=== PATIENT | male | born 1975 | race American Indian/Alaskan Native ===

== ENCOUNTER 2017-08-03 12:19 | Emergency (ER) | payer OTHER ==
[2017-08-03 13:02] VITALS: BP 122/74
[2017-08-03] MEDS ORDERED: MOTRIN PO ONE (19:21)
[2017-08-03] MEDS ORDERED: ZOFRAN ODT PO ONE (19:21)
--- NOTE | 2017-08-03 19:38 | Emergency Department Report ---
- General Chief Complaint: Upper Respiratory Infection Stated Complaint: FLU Time Seen by Provider: 08/03/17 19:19 Source: patient Mode of arrival: Ambulatory Limitations: No Limitations - History of Present Illness Initial Comments: pt presents for flu like symptoms x 1 week cough bodyaches chills fever nausea and vomiting, last n/v yesterday last po intake 2 hrs ago pt now tolerating po intake without n/v/d afebrile in triage today. current symptoms include cough productive yellow, sore throat and ear pain, pt denies dizziness no sob no wheezing no abdominal or back pain MD Complaint: fever, cough, sore throat, rhinorrhea, nasal congestion, sinus pain Onset/Timin -: week(s) Severity: moderate Severity scale (0 -10): 4 Quality: sharp, aching Consistency: intermittent Improves With: nothing Worsens With: activity Associated Symptoms: fever, chills, rhinorrhea, nasal congestion, sore throat, cough, nausea, vomiting, ear pain. denies: diarrhea, dysuria, rash, confusion, right sweats, epistaxis, hoarseness Treatments Prior to Arrival: none - Related Data Previous Rx's Medication Instructions Recorded Last Taken Type Azithromycin [Zithromax Z-KAROLINA] 250 mg PO DAILY #6 tablet 08/03/17 Unknown Rx Guaifenesin/Pseudoephedrne HCl 1 tab PO BID PRN #24 tab 08/03/17 Unknown Rx [Mucinex D ER 1,200-120 mg Tab] Ibuprofen 800 mg PO TID PRN #30 tablet 08/03/17 Unknown Rx Allergies Allergy/AdvReac Type Severity Reaction Status Date / Time No Known Allergies Allergy Unverified 08/03/17 12:59 ED Review of Systems ROS: Stated complaint: FLU Other details as noted in HPI Constitutional: denies: chills, fever Eyes: denies: eye pain, eye discharge, vision change ENT: ear pain, throat pain, congestion. denies: dental pain, hearing loss, epistaxis Respiratory: cough. denies: shortness of breath, wheezing Cardiovascular: denies: chest pain, palpitations, dyspnea on exertion, syncope, paroxysmal nocturnal dyspnea Endocrine: no symptoms reported Gastrointestinal: nausea. denies: abdominal pain, diarrhea, constipation, hematemesis, melena, hematochezia Genitourinary: denies: urgency, dysuria Musculoskeletal: as per HPI Skin: denies: rash, lesions Neurological: denies: headache, weakness, paresthesias Psychiatric: denies: anxiety, depression Hematological/Lymphatic: denies: easy bleeding, easy bruising ED Past Medical Hx - Past Medical History Previous Medical History?: No - Surgical History Past Surgical History?: No - Social History Smoking Status: Current Every Day Smoker Substance Use Type: None - Medications Home Medications: Home Medications Medication Instructions Recorded Confirmed Last Taken Type Azithromycin [Zithromax Z-KAROLINA] 250 mg PO DAILY #6 tablet 08/03/17 Unknown Rx Guaifenesin/Pseudoephedrne HCl 1 tab PO BID PRN #24 tab 08/03/17 Unknown Rx [Mucinex D ER 1,200-120 mg Tab] Ibuprofen 800 mg PO TID PRN #30 tablet 08/03/17 Unknown Rx ED Physical Exam - General Limitations: No Limitations General appearance: alert, in no apparent distress - Head Head exam: Present: atraumatic, normocephalic - Eye Eye exam: Present: normal appearance, PERRL, EOMI Pupils: Present: normal accommodation - ENT ENT exam: Present: mucous membranes moist - Expanded ENT Exam Expanded TM/Canal exam: Erythema: Right TM, Left TM, Canal Tenderness: Right TM, Left TM Mouth exam: Absent: trismus Teeth exam: Present: normal inspection Throat exam: Positive: tonsillar erythema. Negative: tonsillomegaly, tonsillar exudate, R peritonsillar mass, L peritonsillar mass - Neck Neck exam: Present: normal inspection, full ROM. Absent: tenderness, meningismus, lymphadenopathy, thyromegaly - Respiratory Respiratory exam: Present: normal lung sounds bilaterally. Absent: respiratory distress, wheezes, stridor, chest wall tenderness - Cardiovascular Cardiovascular Exam: Present: regular rate, normal rhythm. Absent: systolic murmur, diastolic murmur, rubs, gallop - GI/Abdominal GI/Abdominal exam: Present: soft, normal bowel sounds. Absent: distended, tenderness, guarding, rebound, rigid, organomegaly, mass, bruit, pulsatile mass , hernia - Rectal Rectal exam: Present: deferred - Extremities Exam Extremities exam: Present: normal inspection, full ROM. Absent: tenderness - Back Exam Back exam: Present: normal inspection, full ROM. Absent: tenderness - Neurological Exam Neurological exam: Present: alert, oriented X3, CN II-XII intact, normal gait, reflexes normal - Psychiatric Psychiatric exam: Present: normal affect, normal mood - Skin Skin exam: Present: warm, dry, intact, normal color. Absent: rash ED Course Vital Signs 08/03/17 08/03/17 12:59 19:59 Temperature 98.1 F Pulse Rate 63 Respiratory 16 18 Rate Blood Pressure 122/74 O2 Sat by Pulse 98 Oximetry ED Medical Decision Making - Medical Decision Making pt presents for flu like symptoms x 1 week cough bodyaches chills fever nausea and vomiting, last n/v yesterday last po intake 2 hrs ago pt now tolerating po intake without n/v/d afebrile in triage today. current symptoms include cough productive yellow, sore throat and ear pain, pt denies dizziness no sob no wheezing no abdominal or back pain pt appear nontoxic well hydrated tm: bilat erythema pain, nose: boggy clear post nasal drip no polyps no obstruction , pharynx: moderate erythema, mild swelling no exudate no lesions no stridor lungs clear no wheezing abd: soft nontender bs normal , cxr: no infiltrates no opacities rapid Flu: pending , given symptoms for 1 week would not rx tamiflu, plan; tx for uri with aom, there is no wheezing or sob, will treat with zpack, ibuprofen mucinex D, pt will follow up with pcp in 2-3 days or return to ed if symptoms worsen, pt verbalized agreement and understanding of same. Critical care attestation.: If time is entered above; I have spent that time in minutes in the direct care of this critically ill patient, excluding procedure time. ED Disposition Clinical Impression: AOM (acute otitis media) Qualifiers: Otitis media type: serous Laterality: bilateral Recurrence: not specified as recurrent Qualified Code(s): H65.03 - Acute serous otitis media, bilateral URI (upper respiratory infection) Qualifiers: URI type: unspecified viral URI Qualified Code(s): J06.9 - Acute upper respiratory infection, unspecified Disposition: - TO HOME OR SELFCARE Is pt being admited?: No Does the pt Need Aspirin: No Condition: Good Instructions: Upper Respiratory Infection (ED), Otitis Media (ED) Prescriptions: Azithromycin [Zithromax Z-KAROLINA] 250 mg PO DAILY #6 tablet Guaifenesin/Pseudoephedrne HCl [Mucinex D ER 1,200-120 mg Tab] 1 tab PO BID PRN #24 tab PRN Reason: cough congestion Ibuprofen 800 mg PO TID PRN #30 tablet PRN Reason: pain fever Referrals: PRIMARY CAREMD [Primary Care Provider] - 3-5 Days ANNA FRENCH MD [Staff Physician] - 3-5 Days Forms: Work/School Release Form(ED) Time of Disposition: 20:39
--- NOTE | 2017-08-03 21:52 | XRay Report ---
FINAL REPORT EXAM: XR CHEST ROUTINE 2V HISTORY: cough TECHNIQUE: 2 views of the chest. PRIORS: None. FINDINGS: The cardiomediastinal silhouette appears normal. There is prominence of the central bronchial markings and mild peribronchial cuffing. There is no focal consolidation. The bones and soft tissues are unremarkable. IMPRESSION: Findings are consistent with early viral pneumonia
== END 2017-08-03 20:49 | disposition home or self-care (01) ==
LOC: ED 12:19
DX: J06.9 Acute upper respiratory infection, unspecified (principal); H65.03 Acute serous otitis media, bilateral; R11.2 Nausea with vomiting, unspecified; F17.200 Nicotine dependence, unspecified, uncomplicated
CPT/HCPCS: 71046; Q0162